=== PATIENT | female | born 2000 | race Caucasian/White ===

== ENCOUNTER 2023-09-05 19:48 | Emergency (ER) | payer OTHER, BC, MEDICAID ==
[~2023-09-05] VITALS: Ht 162.6 cm; Wt 77.1 kg
[2023-09-05 20:13] VITALS: PULSE 94; RESP 16; TEMP 97.9; O2SAT 100
[2023-09-05] MEDS ORDERED: IBUP-1969 PO (21:32)
[2023-09-05] MEDS ORDERED: TRAM50TA2 PO (21:32)
[2023-09-05 21:37] VITALS: PULSE 94; RESP 16; TEMP 97.9; O2SAT 100
== END 2023-09-05 21:38 | disposition home or self-care (01) ==
LOC: SED 19:48
DX: S83.8X1A Sprain of other specified parts of right knee, initial encounter (principal); S83.8X2A Sprain of other specified parts of left knee, initial encounter; S70.02XA Contusion of left hip, initial encounter; S70.01XA Contusion of right hip, initial encounter; Z79.899 Other long term (current) drug therapy; V89.2XXA Person injured in unspecified motor-vehicle accident, traffic, initial encounter; Y93.89 Activity, other specified; Y92.89 Other specified places as the place of occurrence of the external cause; Y99.8 Other external cause status
CPT/HCPCS: 72170-TC; 99284